=== PATIENT | male | born 1960 | race Caucasian/White ===

== ENCOUNTER 2024-11-16 12:06 | Outpatient (OUT) | payer OTHER, SELFPAY ==
--- OUTSIDE RECORDS SUMMARY | 2024-11-09 16:30 | XMS_ITS | Encounter Summary ---
Author Organization [facility] Address [address] [place] [address] Phone Care Team Providers Care Fire Range Technician Name Role Phone Judy Larry MD Primary Care Provider [phone]- [phone] Reason for Visit * Imaging (Routine) - Pending Review Specialty Diagnoses / Procedures Referred By Contac t Referred To Contact Radiology Diagnoses Family history of ischemic heart disease and other diseases of the circulatory system Procedures CT cardiac scoring wo IV contrast Judy Larry MD [address] [place] [address] [address] [place] [address] Phone: tel: fax: Referral ID Status Reason Start Date Expiration Date Visits Requested Visits Authorized [id number] Pending Review Perform Procedure 08/30/2024 08/30/2025 1 1 Encounter Details Date Type Department Care Team (Latest Contact Info) Description 11/09/2024 4:30 PM EDT Ancillary Procedure [facility] Medical [facility] [address] [phone] Family history of ischemic heart disease and other diseases of the circulatory system Social History Tobacco Use Types Packs/Day Years Used Date Smoking Tobacco: Never Assessed Sex and Gender Information Value Date Recorded Sex Assigned at Not on file Legal Sex Male 10:58 AM EDT Gender Identity Not on file Sexual Orientation Not on file documented as of this encounter Plan of Treatment Not on file documented as of this encounter Procedures Procedure Name Priority Date/Time Associated Diagnosis Comments CT CARDIAC SCORING WO IV CONTRAST Routine 11/09/2024 2:04 PM EDT Family history of ischemic heart disease and other diseases of the circulatory system documented in this encounter Results * CT cardiac scoring wo IV contrast (11/09/2024 2:04 PM EDT) Anatomical Region Laterality Modality Thoracic, Chest Computed Tomogra phy 11/11/2024 10:2 2 AM EDT 11/11/2024 10:22 AM EDT Impressions 11/11/2024 10:21 AM EDT 1. Coronary artery calcium score of 301*. *Coronary artery calcium scoring may be helpful in predicting the risk for future coronary heart disease events. According to the [employer] Clinical Expert Consensus Task Force, such testing provides important prognostic information in patients with more than one coronary heart disease risk factor. The coronary artery calcium score correlates with the annual risk of a non-fatal myocardial infarction or coronary heart disease . Coronary artery score Annual Risk 0-99 0.4% 100-399 1.3% >400 2.4% These three breakpoints correspond to lower, intermediate and high risk states for future coronary events. Such information should be used, along with appropriate clinical judgment, to make decisions regarding the intensity of risk factor management strategies to treat blood lipids and to modify other non-lipid coronary risk factors. Reference: [place] P et al. Circulation. 2007; 115:402-426 2. The chiropractic assistant images demonstrate an apparent dense nodule in the left lung base which may represent summation of shadows. However recommend dedicated follow-up chest x-ray. MACRO: Critical Finding: See findings. Notification was initiated on 11/11/2024 at 10:21 am by Omer Ahumada. (-YCF-) Instructions: See Findings. Signed by: Omer Ahumada 11/11/2024 10:21 AM Dictation workstation: [id number] Narrative 11/11/2024 10:21 AM EDT Interpreted By: Omer Ahumada, STUDY: CT CARDIAC SCORING WO IV CONTRAST; 11/09/2024 2:04 pm INDICATION: Signs/Symptoms:CARDIO SCREENING. ,Z82.49 Family history of ischemic heart disease and other diseases of the circulatory system COMPARISON: None. ACCESSION NUMBER(S): [id number] ORDERING CLINICIAN: JUDY LARRY TECHNIQUE: Using prospective ECG gating, CT scan of the coronary arteries was performed without intravenous contrast. Coronary calcium scoring was performed according to the method of Agatston. FINDINGS: The score and distribution of calcium in the coronary arteries is as follows: LM 0 LAD 167 LCx 78 RCA 56 Total 301 The visualized mid/lower ascending thoracic aorta measures 2.9 cm in diameter. The heart is normal in size. No pericardial effusion is present. Subcentimeter lymph nodes are noted which are nonspecific and may be reactive. The visualized segments of the lungs are normally expanded. The chiropractic assistant images demonstrate an apparent dense nodule in the left lung base which may represent summation of shadows. However recommend dedicated follow-up chest x-ray. The visualized subdiaphragmatic structures appear intact. Procedure Note Omer Ahumada MD - 11/11/2024 Interpreted By: Omer Ahumada, STUDY: CT CARDIAC SCORING WO IV CONTRAST; 11/09/2024 2:04 pm INDICATION: Signs/Symptoms:CARDIO SCREENING. ,Z82.49 Family history of ischemic heart disease and other diseases of the circulatory system COMPARISON: None. ACCESSION NUMBER(S): [id number] ORDERING CLINICIAN: JUDY LARRY TECHNIQUE: Using prospective ECG gating, CT scan of the coronary arteries was performed without intravenous contrast. Coronary calcium scoring was performed according to the method of [place]. FINDINGS: The score and distribution of calcium in the coronary arteries is as follows: LM 0 LAD 167 LCx 78 RCA 56 Total 301 The visualized mid/lower ascending thoracic aorta measures 2.9 cm in diameter. The heart is normal in size. No pericardial effusion is present. Subcentimeter lymph nodes are noted which are nonspecific and may be reactive. The visualized segments of the lungs are normally expanded. The chiropractic assistant images demonstrate an apparent dense nodule in the left lung base which may represent summation of shadows. However recommend dedicated follow-up chest x-ray. The visualized subdiaphragmatic structures appear intact. IMPRESSION: 1. Coronary artery calcium score of 301*. *Coronary artery calcium scoring may be helpful in predicting the risk for future coronary heart disease events. According to the [employer] Clinical Expert Consensus Task Force, such testing provides important prognostic information in patients with more than one coronary heart disease risk factor. The coronary artery calcium score correlates with the annual risk of a non-fatal myocardial infarction or coronary heart disease . Coronary artery score Annual Risk 0-99 0.4% 100-399 1.3% >400 2.4% These three breakpoints correspond to lower, intermediate and high risk states for future coronary events. Such information should be used, along with appropriate clinical judgment, to make decisions regarding the intensity of risk factor management strategies to treat blood lipids and to modify other non-lipid coronary risk factors. Reference: [place] P et al. Circulation. 2007; 115:402-426 2. The chiropractic assistant images demonstrate an apparent dense nodule in the left lung base which may represent summation of shadows. However recommend dedicated follow-up chest x-ray. MACRO: Critical Finding: See findings. Notification was initiated on 11/11/2024 at 10:21 am by Omer Ahumada. (-YCF-) Instructions: See Findings. Signed by: Omer Ahumada 11/11/2024 10:21 AM Dictation workstation: [id number] Judy Larry MD IMG CT PROCEDURES Final Re sult documented in this encounter Visit Diagnoses Diagnosis Family history of ischemic heart disease and other diseases of the circulatory system documented in this encounter Care Teams Fire Range Technician Relationship Specialty Start Date End Date Judy Larry MD [address] [place] [address] PCP - General Family Medicine 11/09/24 documented as of this encounter
--- OUTSIDE RECORDS SUMMARY | 2024-11-16 12:13 | XMS_ITS | Clinical Summary ---
Author Organization [employer] Address [id number] [address] [place] [address] Care Team Providers Care Linseed Cake Trimmer Name Role Phone Christi Magana Primary Care Provider Unavaila ble Allergies No known active allergies Medications sertraline (ZOLOFT) 100 mg tablet Take 100 mg by mouth daily. Active esomeprazole (NexIUM) 20 mg capsule Take 20 mg by mouth every morning before breakfast. Active aspirin 81 mg Take 81 mg by mouth daily. Active atorvastatin (LIPITOR) 20 mg tablet Take 20 mg by mouth daily. Active cujiltcg-rmhy-K A-calcium &mins (THERAGRAN-M) 9 mg iron-400 mcg tablet Take 1 tablet by mouth daily. Active Active Problems Problem Noted Date Diagnosed Date Angina pectoris 09/29/2020 Gastroesophageal reflux disease 09/29/2020 Dyslipidemia 09/29/2020 Family History Medical History Relation Name Comments Diabetes Father Early Father Heart disease Father Diverticulitis Mother Relation Name Status Comments Daughter Alive Father Mother Alive Sister 1 Alive Sister 2 Alive Son 1 Alive Son 2 Alive Social History Tobacco Use Types Packs/Day Years Used Date Smoking Tobacco: Never Smokeless Tobacco: Never Tobacco Cessation:Counseling Given: No Alcohol Use Standard Drinks/Week Comments Yes 0 (1 standard drink = 0.6 oz pur e alcohol) Childcare Answer Date Recorded Childcare Unknown 09/03/2018 Employment Answer Date Recorded Employment Unknown 09/03/2018 Purpose - Life Answer Date Recorded Purpose and direction in life Unknown Sex and Gender Information Value Date Recorded Sex Assigned at Not on file Legal Sex Male 11:36 AM EDT Gender Identity Not on file Sexual Orientation Not on file Last Filed Vital Signs Vital Sign Reading Time Taken Comments Blood Pressure 136/96 01/26/2021 8:33 AM EDT Pulse 82 01/26/2021 8:33 AM EDT Temperature 36.4 C (97.6 F) 01/26/2021 6:43 AM EDT Respiratory Rate 24 01/26/2021 8:13 AM EDT Oxygen Saturation 97% 01/26/2021 8:33 AM EDT Inhaled Oxygen Concentration - - Weight 99.8 kg (220 lb) 01/26/2021 6:43 AM EDT Height 175.3 cm (5' 9 ) 01/26/2021 6:43 AM EDT Body Mass Index 32.49 01/26/2021 6:43 AM EDT Plan of Treatment Health Maintenance Due Date Last Done Comments Depression Screening 1974 Tobacco Screening 1974 Adult BMI Screening 1980 DTaP,Tdap and Td Vaccines (1 - Tdap) 1981 Zoster (Shingles) Vaccine (1 of 2) 2012 COVID-19 Vaccine (3 - 2023-2 5 season) 2023 06/28/2020, 06/07/2020 Influenza Vaccine 11/23/2024 12/11/2019, , 02/09/2018, Additional history exists Colonoscopy 01/26/2026 01/26/2021, 06/2020, 07/05/2014 Medical Devices Not on file Procedures Procedure Name Priority Date/Time Associated Diagnosis Comments COLONOSCOPY 01/26/2021 7:46 AM EDT from Last 3 Months or Most Recently Relevant to Health Maintenance Results * Colonoscopy (01/26/2021 7:46 AM EDT) 01/26/2021 7:46 AM EDT Narrative PM CARDIOVASCULAR - 01/26/2021 8:10 AM EDT [facility] Patient Name: Steve Harley Procedure Date No Time: 01/26/2021 CSN : [id number] Date of : 1960 Admit Type: Outpatient Age: 60 Room: [place] [address] Gender: Male Note Status: Finalized Attending MD: Enrrique Dixon DO Procedure: Colonoscopy Indications: Screening for colorectal malignant neoplasm, Surveillance: Personal history of adenomatous polyps on last colonoscopy > 5 years ago Providers: Enrrique Dixon DO Referring MD: Enrrique Dixon DO Medicines: Propofol per Anesthesia Complications: No immediate complications. Procedure: After I obtained informed consent, the scope was passed under direct vision. Throughout the procedure, the patient's blood pressure, pulse, and oxygen saturations were monitored continuously. The [place] [id number] #[id number] ADULT COLONOSCOPE was introduced through the anus and advanced to the cecum, identified by appendiceal orifice and ileocecal valve. The colonoscopy was performed without difficulty. The patient tolerated the procedure well. The quality of the bowel preparation was good. Findings: The perianal and digital rectal examinations were normal. Multiple small and large-mouthed diverticula were found in the sigmoid colon and descending colon. A 5 mm polyp was found in the hepatic flexure. The polyp was sessile. The polyp was removed with a hot snare. Resection and retrieval were complete. The exam was otherwise without abnormality on direct and retroflexion views. Estimated Blood Loss: Estimated blood loss: none. Impression: - Diverticulosis in the sigmoid colon and in the descending colon. - One 5 mm polyp at the hepatic flexure, removed with a hot snare. Resected and retrieved. - The examination was otherwise normal on direct and retroflexion views. Recommendation: - Discharge patient to home. - Patient has a contact number available for emergencies. The signs and symptoms of potential delayed complications were discussed with the patient. Return to normal activities tomorrow. Written discharge instructions were provided to the patient. - High fiber diet for the rest of the patient's life. - Repeat colonoscopy in 5 years for surveillance based on pathology results. - Return to my office PRN. Procedure Code(s): --- Professional --- 68284, Colonoscopy, flexible; with removal of tumor(s), polyp(s), or other lesion(s) by snare technique Diagnosis Code(s): --- Professional --- Z12.11, Encounter for screening for malignant neoplasm of colon Z86.010, Personal history of colonic polyps K63.5, Polyp of colon K57.30, Diverticulosis of large intestine without perforation or abscess without bleeding CPT copyright 2020 [employer]. All rights reserved. The codes documented in this report are preliminary and upon vp sales review may be revised to meet current compliance requirements. DO Enrrique Gibbons DO 01/26/2021 8:10:23 AM Number of Addenda: 0 Note Initiated On: 01/26/2021 7:46 AM Procedure Note Enrrique Dixon DO - 01/26/2021 [facility] Patient Name: Steve Harley Procedure Date No Time: 01/26/2021 CSN : [id number] Date of : 1960 Admit Type: Outpatient Age: 60 Room: [place] [address] Gender: Male Note Status: Finalized Attending MD: Enrrique Dixon DO Procedure: Colonoscopy Indications: Screening for colorectal malignant neoplasm, Surveillance: Personal history of adenomatouspolyps on last colonoscopy > 5 years ago Providers: Enrrique Dixon DO Referring MD: Enrrique Dixon DO Medicines: Propofol per Anesthesia Complications: No immediate complications. Procedure: After I obtained informed consent, the scope was passed under direct vision. Throughout theprocedure, the patient's blood pressure, pulse, and oxygen saturations were monitored continuously. The[facility] developers[facility] [id number] #[id number] ADULT COLONOSCOPE was introduced through the anus and advanced to the cecum,identified by appendiceal orifice and ileocecal valve. The colonoscopy was performed without difficulty. The patient tolerated the procedure well. The qualityof the bowel preparation was good. Findings: The perianal and digital rectal examinations were normal. Multiple small and large-mouthed diverticula were found in thesigmoid colon and descending colon. A 5 mm polyp was found in the hepatic flexure. The polyp was sessile. The polyp was removed with a hot snare. Resection and retrieval were complete. The exam was otherwise without abnormality on direct and retroflexion views. Estimated Blood Loss: Estimated blood loss: none. Impression: - Diverticulosis in the sigmoid colon and in the descending colon. - One 5 mm polyp at the hepatic flexure, removedwith a hot snare. Resected and retrieved. - The examination was otherwise normal on directand retroflexion views. Recommendation: - Discharge patient to home. - Patient has a contact number available for emergencies. The signs and symptoms of potential delayed complications were discussed with thepatient. Return to normal activities tomorrow. Written discharge instructions were provided to thepatient. - High fiber diet for the rest of the patient'slife. - Repeat colonoscopy in 5 years for surveillancebased on pathology results. - Return to my office PRN. Procedure Code(s): --- Professional --- 71729, Colonoscopy, flexible; with removal of tumor(s), polyp(s), or other lesion(s) by snare technique Diagnosis Code(s): --- Professional --- Z12.11, Encounter for screening for malignant neoplasm of colon Z86.010, Personal history of colonic polyps K63.5, Polyp of colon K57.30, Diverticulosis of large intestine without perforation orabscess without bleeding CPT copyright 2020 [employer]. All rights reserved. The codes documented in this report are preliminary and upon vp sales reviewmay be revised to meet current compliance requirements. DO Enrrique Gibbons DO 01/26/2021 8:10:23 AM Number of Addenda: 0 Note Initiated On: 01/26/2021 7:46 AM Enrrique Dixon DO GI PROCEDURE ORDERABLES Fin al Result PM CARDIOVASCULAR from Last 3 Months or Most Recently Relevant to Health Maintenance Insurance [employer] Care Teams Linseed Cake Trimmer Relationship Specialty Start Date End Date Christi Magana DO PCP - General Family Medicine 09/27/20
--- OUTSIDE RECORDS SUMMARY | 2024-11-16 12:13 | XMS_ITS | Encounter Summary ---
Author Organization [facility] Address [address] [place] [phone] Phone Care Team Providers Care Litigation Docket Manager Name Role Phone Generic Provider, No Assigned Pcp MD Primary Car e Provider Unavailable Judy Larry MD Primary Care Provider [phone]- [phone] Reason for Referral * Imaging (Routine) - Pending Review Specialty Diagnoses / Procedures Referred By Contac t Referred To Contact Radiology Diagnoses Family history of ischemic heart disease and other diseases of the circulatory system Procedures CT cardiac scoring wo IV contrast Judy Larry MD [address] [facility] [address] [place] [address] Phone: tel: fax: Referral ID Status Reason Start Date Expiration Date Visits Requested Visits Authorized [id number] Pending Review Perform Procedure 08/30/2024 08/30/2025 1 1 Encounter Details Date Type Department Care Team (Late st Contact Info) Description 08/30/2024 Transcribe Orders [facility] [address] [place] [address] Judy Larry MD [address] [facility] [address] [place] [address] Family history of ischemic heart disease and other diseases of the circulatory system (Primary Dx) Social History Tobacco Use Types Packs/Day Years Used Date Smoking Tobacco: Never Assessed Sex and Gender Information Value Date Recorded Sex Assigned at Not on file Legal Sex Male 10:58 AM EDT Gender Identity Not on file Sexual Orientation Not on file documented as of this encounter Plan of Treatment Not on file documented as of this encounter Results * CT cardiac scoring [...] coronary heart disease events. According to the [employer] Clinical Expert Consensus [...] modify other non-lipid coronary risk factors. Reference: [place] P et al. Circulation. 2007; 115:402-426 2. The brake adjuster images demonstrate an apparent dense nodule in the left lung base which may represent summation of shadows. However recommend dedicated follow-up chest x-ray. MACRO: Critical Finding: See findings. Notification was initiated on 11/11/2024 at 10:21 am by Omer Ahumada. (-YCF-) Instructions: See Findings. Signed by: Omer Ahumada 11/11/2024 10:21 AM Dictation workstation: [id number] Narrative 11/11/2024 10:21 AM EDT Interpreted By: Omer Ahumada, STUDY: CT CARDIAC SCORING WO IV CONTRAST; 11/09/2024 2:04 pm INDICATION: Signs/Symptoms:CARDIO SCREENING. ,Z82.49 Family history of ischemic heart disease and other diseases of the circulatory system COMPARISON: None. ACCESSION NUMBER(S): [id number] ORDERING CLINICIAN: JUDY LARRY TECHNIQUE: Using prospective [...] of the lungs are normally expanded. The brake adjuster images demonstrate an apparent dense nodule in [...] the circulatory system COMPARISON: None. ACCESSION NUMBER(S): [id number] ORDERING CLINICIAN: JUDY LARRY TECHNIQUE: Using prospective [...] of the lungs are normally expanded. The brake adjuster images demonstrate an apparent dense nodule in the left lung base which may represent summation of shadows. However recommend dedicated follow-up chest x-ray. The visualized subdiaphragmatic structures appear intact. IMPRESSION: 1. Coronary artery calcium score of 301*. *Coronary artery calcium scoring may be helpful in predicting the risk for future coronary heart disease events. According to the [employer] Clinical Expert Consensus [...] modify other non-lipid coronary risk factors. Reference: [place] P et al. Circulation. 2007; 115:402-426 2. The brake adjuster images demonstrate an apparent dense nodule in the left lung base which may represent summation of shadows. However recommend dedicated follow-up chest x-ray. MACRO: Critical Finding: See findings. Notification was initiated on 11/11/2024 at 10:21 am by Omer Ahumada. (-YCF-) Instructions: See Findings. Signed by: Omer Ahumada 11/11/2024 10:21 AM Dictation workstation: [id number] Judy Larry MD IMG CT PROCEDURES Final Re sult documented in this encounter Visit Diagnoses Diagnosis Family history of ischemic heart disease and other diseases of the circulatory system- Primary Family history of ischemic heart disease and other diseases of the circulatory system documented in this encounter Care Teams Litigation Docket Manager Relationship Specialty Start Date End Date Generic Provider, No [place] [address] PCP - General Craft Coordinator 10/27/24 11/08/24 Judy Larry MD [address] [place] [address] [address] [place] [address] PCP - General Family Medicine 11/09/24 documented as of this encounter
--- OUTSIDE RECORDS SUMMARY | 2024-11-16 12:13 | XMS_ITS | Clinical Summary ---
Author Organization [facility] Address [address] [place] [address] Phone Care Team Providers Care Office Helper Name Role Phone Judy Larry MD Primary Care Provider [phone]- [phone] Encounters Date Type Department Care Team Description 11/09/2024 4:30 PM EDT Ancillary Procedure [facility] [address] [id number] Family history of ischemic heart disease and other diseases of the circulatory system 11/09/2024 Travel 08/30/2024 Transcribe Orders [facility] [address] [place] [address] Judy Larry MD Family history of ischemic heart disease and other diseases of the circulatory system (Primary Dx) from Last 3 Months Social History Tobacco Use Types Packs/Day Years Used Date Smoking Tobacco: Never Assessed Sex and Gender Information Value Date Recorded Sex Assigned at Not on file Legal Sex Male 10:58 AM EDT Gender Identity Not on file Sexual Orientation Not on file Plan of Treatment Health Maintenance Due Date Last Done Comments CT Colonography 1962 FIT-DNA (Cologuard) 1960 FIT 1960 HIV Screening 1960 Lipid Panel 1960 Sigmoidoscopy 1962 MMR Vaccines (1 of 1 - Standard series) 05/27/1963 Hepatitis C Screening 1980 Hepatitis A Vaccines (1 of 2 - Risk 2-dose series) 1981 DTaP/Tdap/Td Vaccines (1 - Tdap) 1984 PSA Prostate Cancer Screening 2012 Pneumococcal Vaccine (1 of 1 - PCV) 2012 Zoster Vaccines (1 of 2) 2012 Hepatitis B Vaccines (1 of 3 - Risk 3-dose series) 2022 RSV High Risk: (Elderly (60+) or Population) (1 - Risk 60-74 years 1-dose series) 2022 COVID-19 Vaccine (1 - season) 2023 Influenza Vaccine (#1) 2024 0, 02/27/2019, 02/09/2018, Additional history exists Yearly Adult Physical 02/04/2025 02/04/2024, 023 Colonoscopy 01/26/2031 01/26/2021, 06/2020, 01/26/2021 Colorectal Cancer Screening 01/26/2031 HIB Vaccines Aged Out No longer eligi ble based on patient's age to complete this topic HPV Vaccines Aged Out No longer eligi ble based on patient's age to complete this topic IPV Vaccines Aged Out No longer eligi ble based on patient's age to complete this topic Meningococcal Vaccine Aged Out No linda devaughn eligible based on patient's age to complete this topic Rotavirus Vaccines Aged Out No longer eligible based on patient's age to complete this topic Procedures Procedure Name Priority Date/Time Associated Diagnosis Comments CT CARDIAC SCORING WO IV CONTRAST Routine 11/09/2024 2:04 PM EDT Family history of ischemic heart disease and other diseases of the circulatory system from Last 3 Months Results * CT cardiac scoring wo IV contrast (11/09/2024 2:04 PM EDT) Anatomical Region Laterality Modality Thoracic, Chest Computed Tomogra phy 11/11/2024 10:2 2 AM EDT 11/11/2024 10:22 AM EDT Impressions 11/11/2024 10:21 AM EDT 1. Coronary artery calcium score of 301*. *Coronary artery calcium scoring may be helpful in predicting the risk for future coronary heart disease events. According to the [employer] Clinical Expert Consensus [...] modify other non-lipid coronary risk factors. Reference: [place] P et al. Circulation. 2007; 115:402-426 2. The electromechanical inspector images demonstrate an apparent dense nodule in the left lung base which may represent summation of shadows. However recommend dedicated follow-up chest x-ray. MACRO: Critical Finding: See findings. Notification was initiated on 11/11/2024 at 10:21 am by Omer Ahumada. (-YCF-) Instructions: See Findings. Signed by: Omer Ahumada 11/11/2024 10:21 AM Dictation workstation: [id number] Narrative 11/11/2024 10:21 AM EDT Interpreted By: Omer Ahumada, STUDY: CT CARDIAC SCORING WO IV CONTRAST; 11/09/2024 2:04 pm INDICATION: Signs/Symptoms:CARDIO SCREENING. ,Z82.49 Family history of ischemic heart disease and other diseases of the circulatory system COMPARISON: None. ACCESSION NUMBER(S): [id number] ORDERING CLINICIAN: JUDY LARRY TECHNIQUE: Using prospective [...] of the lungs are normally expanded. The electromechanical inspector images demonstrate an apparent dense nodule in [...] the circulatory system COMPARISON: None. ACCESSION NUMBER(S): [id number] ORDERING CLINICIAN: JUDY LARRY TECHNIQUE: Using prospective [...] of the lungs are normally expanded. The electromechanical inspector images demonstrate an apparent dense nodule in the left lung base which may represent summation of shadows. However recommend dedicated follow-up chest x-ray. The visualized subdiaphragmatic structures appear intact. IMPRESSION: 1. Coronary artery calcium score of 301*. *Coronary artery calcium scoring may be helpful in predicting the risk for future coronary heart disease events. According to the [place] [employer] Clinical Expert Consensus [...] modify other non-lipid coronary risk factors. Reference: [place] P et al. Circulation. 2007; 115:402-426 2. The electromechanical inspector images demonstrate an apparent dense nodule in the left lung base which may represent summation of shadows. However recommend dedicated follow-up chest x-ray. MACRO: Critical Finding: See findings. Notification was initiated on 11/11/2024 at 10:21 am by Omer Ahumada. (-YCF-) Instructions: See Findings. Signed by: Omer Ahumada 11/11/2024 10:21 AM Dictation workstation: [id number] Judy Larry MD IMG CT PROCEDURES Final Re sult from Last 3 Months Insurance [facility] Member Subscriber Plan / Payer (Ef fective 2015-Present) Name:Steve Harley Relation to Subscriber:Self Name:Steve Harley Payer ID:[id number] (NAIC) Type:Not on file Address: [place] [id number] Care Teams Office Helper Relationship Specialty Start Date End Date Judy Larry MD [address] [place] [address] PCP - General Family Medicine 11/09/24
--- OUTSIDE RECORDS SUMMARY | 2024-11-16 12:13 | XMS_ITS | Encounter Summary ---
Author Organization [facility] Address [address] [place] [address] Phone Care Team Providers Care Signal Engineer Name Role Phone Judy Gates MD Primary Care Provider [phone]- [phone] Encounter Details Date Type Department Care Team (Latest Contact Info) Description 11/09/2024 Travel Social History Tobacco Use Types Packs/Day Years Used Date Smoking Tobacco: Never Assessed Sex and Gender Information Value Date Recorded Sex Assigned at Not on file Legal Sex Male 10:58 AM EDT Gender Identity Not on file Sexual Orientation Not on file documented as of this encounter Plan of Treatment Not on file documented as of this encounter Visit Diagnoses Not on filedocumented in this encounter Care Teams Signal Engineer Relationship Specialty Start Date End Date Judy Gates MD [address] [facility] [address] [place] [address] PCP - General Family Medicine 11/09/24 documented as of this encounter
--- NOTE | 2024-11-16 12:17 | XR_ITS ---
[place] [id number] Patient Name: MEL KOCH MRN: [id number] date: 1960 Sex: M Assigned Patient Location: [facility] Current Patient Location: [facility] Accession/Order Number: [id number] Exam Date: 11/16/2024 12:25 Report Date: 11/16/2024 12:47 At the request of: CJ LARRY Procedure: XR chest 2V Plain film chest 2 view HISTORY: Left lung nodule COMPARISON: None FINDINGS: SUPPORT DEVICES: None POSTSURGICAL CHANGES: None HEART: Within normal limits PULMONARY RAMONA: Within normal limits MEDIASTINUM: Unremarkable LUNGS AND PLEURA: No acute lung process, pleural effusion or pneumothorax identified. 1.3 cm left lung base nodule. BONY STRUCTURES: Intact ADDITIONAL FINDINGS None XR/XR chest 2V IMPRESSION: 1.3 cm left lung base nodule. Impression dictated by: Hi Wild M.D. 11/16/2024 12:47 PM Dictation Location: [place] Electronically authenticated by: [id number] Y Date: 11/16/2024 12:47
== END 2024-11-16 12:07 | disposition home or self-care (01) ==
LOC: RAD 12:12
PROVIDERS: PCP Family Medicine; Visit Provider Family Medicine
DX: R91.1 Solitary pulmonary nodule (principal)
CPT/HCPCS: 71046

== ENCOUNTER 2025-02-17 09:54 | Outpatient (OUT) | payer OTHER, SELFPAY ==
--- OUTSIDE RECORDS SUMMARY | 2025-02-17 09:57 | XMS_ITS | Clinical Summary ---
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 Name Role Phone Judy Gates MD Primary Care Provider [phone] Allergies Active AllergyReactionsCriticalityNoted DateCommentsPoison Ayesha Axrxvxa0301/02/2024 Other Reaction(s): Blister Medications MedicationSigDispense QuantityRefillsLast FilledStart DateEnd DateStatus aspirin (ASPIR) 81 MG EC tablet 1 (one) time each day at the same time.Active esomeprazole (NexIUM) 40 MG packet 1 (one) time each day at the same time.Active atorvastatin (Lipitor) 40 MG tablet Indications:Mixed hyperlipidemiaTake 1 tablet (40 mg) by mouth Daily 100 tablet 412/5Active sertraline (Zoloft) 100 MG tablet Indications:Recurrent major depression in partial remissionTake 1 tablet (100 mg) by mouth Daily 100 tablet 5Active azithromycin (Zithromax) 250 MG tablet Indications:Acute bronchitis, unspecified organism2 tabs x1 day, then 1 tab xs 4 days 6 tablet 5Active vardenafil (Levitra) 20 MG tablet Indications:Erectile dysfunction, unspecified erectile dysfunction typeTake 1 tablet (20 mg) by mouth Daily as needed for erectile dysfunction 10 tablet Discontinued(Other) diclofenac (Voltaren) 75 MG EC tablet Take 75 mg by mouth in the morning and 75 mg before bedtime.02/09/2025 Discontinued(Other) Active Problems ProblemNoted DateDiagnosed LisgToucugofyu79/12/2024H/O dnqnmdaocyg81/12/2024 Internal derangement of right knee02/04/2024rimary osteoarthritis of right knee 02/04/2024Medial meniscus tear02/04/2024Status post arthroscopy of right knee 02/04/2024History of uxwkfijbswodoun76/12/6000Ftqfrin05/12/2024Major depressive disorder, single episode, yxderzsc89/12/2024 Assessment & Plan (02/04/2024 4:18 PM EST): This is a chronic medical condition that is stable since last assessment. No changes in treatment are suggested at this time. Continue Current meds. In Full remission Heart pzaugyukqieb52/24/2023 Assessment & Plan (01/15/2023 4:46 PM EDT): Reduce caffeine Avoid OTC decongestants Consider Event or Holter Velazquez's neuroma of left foot09/24/2022bsence of njvvrwqalki42/26/2023dult BMI 34.0-34.9 kg/sq m009/17/2022egeneration of cervical intervertebral disc 09/17/2022iverticulosis of colon09/17/2022Family history of diabetes mellitus 09/17/2022Family history of ischemic heart pgxhbhg6909/17/2022astroesophageal reflux disease without qhnbjkfydms90/26/2023eneralized anxiety disorder 09/17/2022ilbert's wyuvwchs95/26/2023Hx of adenomatous polyp of colon09/17/2022 Erectile xhgzeokaood71/26/2023Long term current use of ijgbogk7509/17/2022Nummular toxxmn7609/17/20228956Twsbn80/26/2023Tubular adenoma of colon09/17/2022Varicose veins of bilateral lower extremities with other tykdmjkudrgnq95/26/2023Recurrent major depressive disorder, in partial hilhwmvzu92/26/2023Mixed hyperlipidemia 08/24/2022 Assessment & Plan (02/04/2024 4:18 PM EST): This is a chronic medical condition that is stable since last assessment. No changes in treatment are suggested at this time. Continue Current meds. Assessment & Plan (01/15/2023 4:36 PM EDT): Continue medicines D/W patient med compliance and also reviewed labs Pxteajmuuprxzxn35/02/2023Recurrent major depression in partial remission 08/24/2022 Assessment & Plan (01/15/2023 4:36 PM EDT): This is a chronic medical condition that is stable since last assessment. No changes in treatment are suggested at this time. Angina /08/5504Zyiucqmqnxnc40/08/2021Varicose veins of both lower oipuvecicmv15/14/2019History of excision of intestinal hqigtyabf69/22/2017 Resolved Problems ProblemNoted DateDiagnosed DateResolved DateEncounter for well adult exam without abnormal eyzwszhw62 Assessment & Plan (02/04/2024 4:13 PM EST): Modest Alcohol consumption No Tobacco Seat Belt use Exercise Regularly No Text Drive Social Accountability Assessment & Plan (01/15/2023 4:34 PM EDT): Modest Alcohol consumption No Tobacco Seat Belt use Exercise Regularly No Text Drive Social Accountability Encounters DateTypeDepartmentCare RchoHljespipsxg64/24/2025Results Follow-Up [facility] [place] [facility] [address] [place] [id number] Judy Gates MD CBC and differential, Comprehensive metabolic panel, Lipid panel, PSA02/10/2025 Orders Only [facility] [address] [place] [address] Jordyn Augustin PA Erectile dysfunction, unspecified erectile dysfunction type (Primary Dx) 02/03/2025Telephone [facility] [address] [place] [address] Judy Gates MD 12/10/2024bstract [facility] [address] [place] [address] Judy Gates MD 11/17/2024Results Follow-Up [facility] [address] [place] [address] Judy Gates MD XR CHEST 2Vfrom Last 3 Months Immunizations ImmunizationAdministration DatesNext DueInfluenza, injectable, quadrivalent 12/11/2019,02/27/2019,02/09/2018Influenza, seasonal, injectable, preservative free01/01/2017Influenza, seasonal, intradermal, preservative free01/01/2017 Family History Medical HistoryRelationNameCommentsDiabetesCousinDiabetesFatherHeart attack FatherHeart diseaseFatherDiabetesFather's BrotherHeart diseaseFather's Brother HypertensionFather's BrotherLeukemiaMaternal GrandfatherDiverticulitisMother Heart diseasePaternal GrandfatherDiverticulitisSisterHyperlipidemiaSister MelanomaNeg HxRelationNameStatusCommentsCousinDaughter 1AliveDaughter 2Alive FatherDeceased (Age 55)Sudden -55Father's BrotherMaternal Grandfather (Age 40)Maternal GrandmotherDeceased (Age 99)MotherAliveback surgery, lumbar fusion knee replacementPaternal GrandfatherSister2 sistersSonAlive Social History Tobacco UseTypesPacks/DayYears UsedDateSmoking Tobacco: NeverSmokeless Tobacco: Never Tobacco Cessation:Counseling Given: Yes Alcohol UseStandard Drinks/WeekCommentsYes0 (1 standard drink = 0.6 oz pure alcohol)2-4 times/month. Caffeine 1-2 cups/dayPHQ-2AnswerDate RecordedPatient Health Questionnaire-2 Goyuv469Sex and Gender InformationValueDate RecordedSex Assigned at BirthNot on fileLegal PkkXfzg7006/06/2022 7:35 PM EDT Gender PxhwhvoaWflz25/15/2023 7:35 PM EDTSexual OrientationNot on file Last Filed Vital Signs Vital SignReadingTime TakenCommentsBlood Gudazwox221/7203 2:32 PM EDT Hccgm131306/03/2024 2:32 PM TFPChhnextgfok19.5 ??C (97.7 ??F)06/03/2024 2:32 PM EDTRespiratory Rate--Oxygen Upsomoolcv76%06/03/2024 2:32 PM EDTInhaled Oxygen Concentration--Kifvty211 kg (224 lb)06/03/2024 2:32 PM LJQNxmuhy836.3 cm (5' 9 ) 06/03/2024 2:32 PM EDTBody Mass Index33.0806/03/2024 2:32 PM EDT Plan of Treatment DateTypeDepartmentCare Team (Latest Contact Info)Ufaiubtqpzo96/15/2025 2:00 PM ESTOffice Visit [facility] [address] [facility] [address] [place] [address] Judy Gates MD [address] [facility] [address] [place] [address] 04/29/2025 9:35 AM ESTOffice Visit [facility] [address] [place] [address] Yvette Alfaro MD [address] [place] [address] Health MaintenanceDue DateLast DoneCommentsCT Ycabjikupkvo48/04/1963FIT-DNA 1962FIT1962FOBT1962 4192Bgkvoxihgboyj66/04/1963Pneumococcal Vaccine: Pediatrics (0 to 5 Years) and At-Risk Patients (6 to 64 Years) (1 of 2 - PCV)1981COVID-19 Vaccine ( season), 06/28/2020, 06/07/2020Influenza Vaccine (#1), 02/27/2019, 02/09/2018, Additional history idbygoCydprpgzjiy46, 07/05/2014 Colorectal Cancer Rhyauvcnt99/04/2031 Procedures Procedure NamePriorityDate/TimeAssociated DiagnosisCommentsTESTOSTERONE FREE AND IUDCJZqpewri18/ 10:25 AM EST Erectile dysfunction, unspecified erectile dysfunction type PSA, SIPWWWiauebh28/19/2025 10:25 AM EST Nocturia Encounter for well adult exam without abnormal findings LIPID ZSIUXZqodsyi28/19/2025 10:25 AM EST Mixed hyperlipidemia Encounter for well adult exam without abnormal findings COMPREHENSIVE METABOLIC KHKIVTtckflt07/19/2025 10:25 AM EST Nocturia Mixed hyperlipidemia Family history of diabetes mellitus Benign essential hypertension Abnormal glucose tolerance test Encounter for well adult exam without abnormal findings CBC (INCLUDES DIFF/PLT)Bcoccmt7002/10/2025 10:25 AM EST Nocturia Mixed hyperlipidemia Family history of diabetes mellitus Benign essential hypertension Abnormal glucose tolerance test Encounter for well adult exam without abnormal findings ELQDUKGTBSTJxosaov46/04/2021 12:00 PM EDT from Last 3 Months or Most Recently Relevant to Health Maintenance Results * CBC and differential (02/10/2025 10:25 AM EST)ComponentValueRef RangeTest MethodAnalysis TimePerformed AtPathologist SignatureWHITE BLOOD CELL COUNT7.6 3.8 - 10.8 Thousand/uLQUESTRED BLOOD CELL COUNT5.204.20 - 5.80 Million/uLQUEST VGBRTZRLUE43.613.2 - 17.1 g/xIRCMDEOHTEOTARHB73.438.5 - 50.0 %YWNCFVUN97.280.0 - 100.0 lWHUWCSFMK03.927.0 - 33.0 jdIQVVKHEJW76.032.0 - 36.0 g/dLQUESTComment: For adults, a slight decrease in the calculated MCHC value (in the range of 30 to 32 g/dL) is most likely not clinically significant; however, it should be interpreted with caution in correlation with other red cell parameters and the patient's clinical condition. RDW11.911.0 - 15.0 %QUESTPLATELET RNJQV833311 - 400 Thousand/uLQUESTMPV9.97.5 - 12.5 fLQUESTABSOLUTE NEUTROPHILS4,5521,500 - 7,800 cells/uLQUESTABSOLUTE LYMPHOCYTES2,466389 - 3,900 cells/uLQUESTABSOLUTE FZHDUDXDP389244 - 950 cells/uL QUESTABSOLUTE YLHPNDRREGH53644 - 500 cells/uLQUESTABSOLUTE KSAZKVJSY990 - 200 cells/pVKYETOGFYFPJHJXIA45.9%IAMYXSAIPUTCKASQ66.6%QUESTMONOCYTES8.5%QUEST EOSINOPHILS3.7%QUESTBASOPHILS1.3%QUESTSpecimen (Source)Anatomical Location / LateralityCollection Method / VolumeCollection TimeReceived TimeBloodVenous blood specimen / Pvhcdff3202/10/2025 10:25 AM EST02/10/2025 10:26 AM EST Narrative [facility] - 02/11/2025 7:16 AM EST FASTING:YES FASTING: YES Resulting Agency Comment Performing Organization Information ?Site ID: QPT ?Name: [facility] ?Address: [address] [place] [phone] ?Director: Desean Thomas MD Authorizing ProviderResult TypeResult StatusJudy Gates MDLAB BLOOD ORDERABLES Final ResultPerforming OrganizationAddressCity/State/ZIP CodePhone Number [facility] * Testosterone, free, total (02/10/2025 10:25 AM EST)ComponentValueRef RangeTest MethodAnalysis TimePerformed AtPathologist SignatureTESTOSTERONE, TOTAL, MS588 250 - 1,100 ng/dLQUESTComment: Men with clinically significant hypogonadal symptoms and testosterone values repeatedly in the range of the 200-300 ng/dL or less, may benefit from testosterone treatment after adequate risk and benefits counseling. ? For additional information, please refer to http://education.S[employer].Eventials/faq/ YxfveYpuxmtadamjhTNEABNKCX516 (This link is being provided for informational/ educational purposes only.) This test was developed and its analytical performance characteristics have been determined by [facility] [place], [place]. It has not been cleared or approved by the U.S. Food and Drug Administration. This assay has been validated pursuant to the CLIA regulations and is used for clinical purposes. ? TESTOSTERONE, FREE60.035.0 - 155.0 pg/mLQUESTComment: This test was developed and its analytical performance characteristics have been determined by [facility] [place], [place]. It has not been cleared or approved by the U.S. Food and Drug Administration. This assay has been validated pursuant to the CLIA regulations and is used for clinical purposes. Specimen (Source)Anatomical Location / LateralityCollection Method / Volume Collection TimeReceived TimeBloodVenous blood specimen / Kfeeggr1002/10/2025 10:25 AM EST02/10/2025 10:26 AM EST Narrative [facility] - 02/16/2025 8:02 PM EST FASTING:YES FASTING: YES Resulting Agency Comment Performing Organization Information ?Site ID: AMD ?Name: [facility] ?Address: [address] [place] [address] [place], [place] ?Director: Yonis France M.D.,PhD Authorizing ProviderResult TypeResult StatusJordyn Vega [facility] BLOOD ORDERABLESFinal ResultPerforming OrganizationAddressCity/State/ZIP CodePhone Number [facility] * PSA (02/10/2025 10:25 AM EST)ComponentValueRef RangeTest MethodAnalysis Time Performed AtPathologist SignaturePSA, TOTAL0.75< OR = 4.00 ng/mLQUESTComment: The total PSA value from this assay system is standardized against the WHO standard. The test result will be approximately 20% lower when compared to the equimolar-standardized total PSA ([place]il [place]). Comparison of serial PSA results should be interpreted with this fact in mind. This test was performed using the Siemens chemiluminescent method. Values obtained from different assay methods cannot be used interchangeably. PSA levels, regardless of value, should not be interpreted as absolute evidence of the presence or absence of disease. Specimen (Source)Anatomical Location / LateralityCollection Method / Volume Collection TimeReceived TimeBloodVenous blood specimen / Bpductb5202/10/2025 10:25 AM EST02/10/2025 10:26 AM EST Narrative [facility] - 02/11/2025 7:16 AM EST FASTING:YES FASTING: YES Resulting Agency Comment Performing Organization Information ?Site ID: QPT ?Name: [facility] ?Address: [address] [place] [address], [address] [place] [phone] ?Director: Desean Thomas MD Authorizing ProviderResult TypeResult StatusJudy MALDONADO BLOOD ORDERABLES Final ResultPerforming OrganizationAddressCity/State/ZIP CodePhone Number [facility] * Lipid panel (02/10/2025 10:25 AM EST)ComponentValueRef RangeTest Method Analysis TimePerformed AtPathologist SignatureCHOLESTEROL, MKYOT168<200 mg/dL QUESTHDL GSXRWDJWWLG07> OR = 40 mg/pPZSNKGHTSTUJUCTNFYO60<150 mg/dLQUESTLDL SAGQNZSCPPT19as/dL (calc)QUESTComment: Reference range: <100 Desirable range <100 mg/dL for primary prevention; <70 mg/dL for patients with CHD or diabetic patients with > or = 2 CHD risk factors. LDL-C is now calculated using the Ryan calculation, which is a validated novel method providing better accuracy than the Friedewald equation in the estimation of LDL-C. Carlton JONES et al. YULY. 2013;310(19): 8524-7424 (http://education.[employer].Eventials/faq/VPL556) CHOL/HDLC RATIO3.0<5.0 (calc)QUESTNON HDL PZWGVAGSFCT682<130 mg/dL (calc)QUEST Comment: For patients with diabetes plus 1 major ASCVD risk factor, treating to a non-HDL-C goal of <100 mg/dL (LDL-C of <70 mg/dL) is considered a therapeutic option. Specimen (Source)Anatomical Location / LateralityCollection Method / Volume Collection TimeReceived TimeBloodVenous blood specimen / Wrluvan2702/10/2025 10:25 AM EST02/10/2025 10:26 AM EST Narrative [facility] - 02/11/2025 7:16 AM EST FASTING:YES FASTING: YES Resulting Agency Comment Performing Organization Information ?Site ID: QPT ?Name: [facility] ?Address: [address] [place] [address], [address] [place] [phone] ?Director: Desean Thomas MD Authorizing ProviderResult TypeResult StatusJudy MALDONADO BLOOD ORDERABLES Final ResultPerforming OrganizationAddressCity/State/ZIP CodePhone Number [facility] * (ABNORMAL) Comprehensive metabolic panel (02/10/2025 10:25 AM EST)Component ValueRef RangeTest MethodAnalysis TimePerformed AtPathologist SignatureGlucose 8765 - 99 mg/dLQUESTComment: ? Fasting reference interval LHW912 - 25 mg/dLQUESTCreatinine0.960.70 - 1.35 mg/gMFDHWVKVCR44> OR = 60 mL/min/1.06k4GLEVSJZA/CREATININE RATIOSEE NOTE:6 - (calc)QUESTComment: ?? Not Reported: BUN and Creatinine are within ?? reference range. ? Nhmxdf514198 - 146 mmol/LQUESTPotassium, Bld4.03.5 - 5.3 mmol/ZBKVSAAjlvokhy884 98 - 110 mmol/LQUESTCarbon Nknwizp2882 - 32 mmol/LQUESTCalcium9.78.6 - 10.3 mg/dLQUESTPROTEIN, TOTAL6.56.1 - 8.1 g/dLQUESTALBUMIN4.63.6 - 5.1 g/dLQUEST GLOBULIN1.91.9 - 3.7 g/dL (calc)QUESTALBUMIN/GLOBULIN RATIO2.41.0 - 2.5 (calc) QUESTBILIRUBIN, TOTAL2.2(H)0.2 - 1.2 mg/dLQUESTALKALINE KDHMCEZMEBM6720 - 144 U/XWZIIGAES5193 - 35 U/WMKDOZYTB618 - 46 U/LQUESTSpecimen (Source)Anatomical Location / LateralityCollection Method / VolumeCollection TimeReceived TimeBlood Venous blood specimen / Modyfot1302/10/2025 10:25 AM EST02/10/2025 10:26 AM EST Narrative [facility] - 02/11/2025 7:16 AM EST FASTING:YES FASTING: YES Resulting Agency Comment Performing Organization Information ?Site ID: QPT ?Name: [facility] ?Address: [address] [place] [address], [address] [place] [phone] ?Director: Desean Thomas MD Authorizing ProviderResult TypeResult StatusJudy Gates MDLAB BLOOD ORDERABLES Final ResultPerforming OrganizationAddressCity/State/ZIP CodePhone Number [facility] * Colonoscopy (01/26/2021 12:00 PM EDT)Anatomical RegionLateralityModality EndoscopySpecimen (Source)Anatomical Location / LateralityCollection Method / VolumeCollection TimeReceived Time01/26/2021 12:00 PM EDT Narrative 01/26/2021 12:00 PM EDT PERFORMED AT [facility] LOCATION:[id number] Tubular adenoma, diverticulosis Procedure Note CONVERSION, GENERIC - 08/08/2022 PERFORMED AT [facility] LOCATION:[id number] Tubular adenoma, diverticulosis Authorizing ProviderResult TypeResult StatusJudy Gates MDENDOSCOPY PROCEDURE ORDERABLESFinal Result from Last 3 Months or Most Recently Relevant to Health Maintenance Insurance [address] [place] [address] Care Teams Team MemberRelationshipSpecialtyStart DateEnd Date Judy Gates MD [address] [facility] [address] [place], [place] [id number] PCP - GeneralFamily Medicine08/24/22
--- OUTSIDE RECORDS SUMMARY | 2025-02-17 09:57 | XMS_ITS | Encounter Summary ---
Author Organization [facility] Address [address] [place] [address] Care Team Providers Care Cable Mechanic Name Role Phone Judy Gates MD Primary Care Provider [phone] Encounter Details DateTypeDepartmentCare Team (Latest Contact Info)Maqjjriihnw66/12/2025Telephone [facility] [place] [facility] [address] [place] [address] Judy Gates MD [address] [place] [address] Social History Tobacco UseTypesPacks/DayYears UsedDateSmoking Tobacco: NeverSmokeless Tobacco: NeverAlcohol UseStandard Drinks/WeekCommentsYes0 (1 standard drink = 0.6 oz pure alcohol)2-4 times/month. Caffeine 1-2 cups/dayPHQ-2AnswerDate RecordedPatient Health Questionnaire-2 [id number] and Gender InformationValueDate RecordedSex Assigned at BirthNot on fileLegal IioHtve3606/06/2022 7:35 PM EDT Gender MnfsxwheLhwa97/15/2023 7:35 PM EDTSexual OrientationNot on filedocumented as of this encounter Miscellaneous Notes * Telephone Encounter - Esther Naranjo MA - 02/03/2025 9:32 AM EST Orders placed and pt notified * Telephone Encounter - Debbie Woods - 02/03/2025 9:21 AM EST Patient called wondering if we can order his lab work before his upcoming appointment so he can getit done and get the results during the appointment documented in this encounter Plan of Treatment DateTypeDepartmentCare Team (Latest Contact Info)Vauwjztilwl03/15/2025 2:00 PM ESTOffice Visit [facility] [place] [facility] [address] [place] [address] Judy Gates MD [address] [place] [address] 04/29/2025 9:35 AM ESTOffice Visit [facility] [place] [facility] [address] [place] [phone] Yvette Alfaro MD [address] [place] [address] documented as of this encounter Procedures Procedure NamePriorityDate/TimeAssociated DiagnosisCommentsCBC (INCLUDES DIFF/PLT)Uesiiut7702/10/2025 10:25 AM EST Nocturia Mixed hyperlipidemia Family history of diabetes mellitus Benign essential hypertension Abnormal glucose tolerance test Encounter for well adult exam without abnormal findings PSA, BAOLRTtndixj74/19/2025 10:25 AM EST Nocturia Encounter for well adult exam without abnormal findings LIPID PMQYPCbmoeux07/19/2025 10:25 AM EST Mixed hyperlipidemia Encounter for well adult exam without abnormal findings COMPREHENSIVE METABOLIC SDPCPXyiovkd03/19/2025 10:25 AM EST Nocturia Mixed hyperlipidemia Family history of diabetes mellitus Benign essential hypertension Abnormal glucose tolerance test Encounter for well adult exam without abnormal findings documented in this encounter Results * PSA (02/10/2025 10:25 AM EST)ComponentValueRef RangeTest MethodAnalysis Time Performed AtPathologist SignaturePSA, TOTAL0.75< OR = 4.00 ng/mLQUESTComment: The total PSA value from this assay system is standardized against the WHO standard. The test result will be approximately 20% lower when compared to the equimolar-standardized total PSA (Anil [place]). Comparison of serial PSA results should be [...] Volume Collection TimeReceived TimeBloodVenous blood specimen / Xcclzoa6502/10/2025 10:25 AM EST02/10/2025 10:26 AM EST Narrative [facility] - 02/11/2025 7:16 AM EST FASTING:YES FASTING: YES Resulting Agency Comment Performing Organization Information ?Site ID: QPT ?Name: [facility] ?Address: [address] [place] [address], [address] [place] [phone] ?Director: Desean Thomas MD Authorizing ProviderResult TypeResult StatusJudy Gates MDLAB BLOOD ORDERABLES Final ResultPerforming OrganizationAddressCity/State/ZIP CodePhone Number [facility] * Lipid panel (02/10/2025 10:25 AM EST)ComponentValueRef RangeTest Method Analysis TimePerformed AtPathologist SignatureCHOLESTEROL, ENYSN071<200 mg/dL QUESTHDL LJOHKQLOUMY10> OR = 40 mg/oAHHDQIEWFXDOKSIVZJZ00<150 mg/dLQUESTLDL XSPXIDHCKSR11md/dL (calc)QUESTComment: Reference range: <100 Desirable range <100 mg/dL for primary prevention; <70 mg/dL for patients with CHD or diabetic patients with > or = 2 CHD risk factors. LDL-C is now calculated using the Carlton-Thadedus calculation, which is a validated novel method providing better accuracy than the Friedewald equation in the estimation of LDL-C. Carlton SS et al. YULY. 2013;310(19): 2926-6955 (http://education.Socialmoth.FusionOne/faq/BIF578) CHOL/HDLC RATIO3.0<5.0 (calc)QUESTNON HDL PGEXCRBAFIR584<130 mg/dL (calc)QUEST Comment: For patients with diabetes plus 1 major ASCVD risk factor, treating to a non-HDL-C goal of <100 mg/dL (LDL-C of <70 mg/dL) is considered a therapeutic option. Specimen (Source)Anatomical Location / LateralityCollection Method / Volume Collection TimeReceived TimeBloodVenous blood specimen / Adowckn8202/10/2025 10:25 AM EST02/10/2025 10:26 AM EST Narrative [facility] - 02/11/2025 7:16 AM EST FASTING:YES FASTING: YES Resulting Agency Comment Performing Organization Information ?Site ID: QPT ?Name: [facility] ?Address: [address] [place] [address], [address] [place] [phone] ?Director: Desean Thomas MD Authorizing ProviderResult TypeResult StatusJudy Gates MDLAB BLOOD ORDERABLES Final ResultPerforming OrganizationAddressCity/State/ZIP CodePhone Number [facility] * (ABNORMAL) Comprehensive metabolic panel (02/10/2025 10:25 AM EST)Component ValueRef RangeTest MethodAnalysis TimePerformed AtPathologist SignatureGlucose 8765 - 99 mg/dLQUESTComment: ? Fasting reference interval MKA009 - 25 mg/dLQUESTCreatinine0.960.70 - 1.35 mg/uVDUBGCHLIK50> OR = 60 mL/min/1.73s1LVNHEGFB/CREATININE RATIOSEE NOTE: - (calc)QUESTComment: ?? Not Reported: BUN and Creatinine are within ?? reference range. ? Yxltfq141148 - 146 mmol/LQUESTPotassium, Bld4.03.5 - 5.3 mmol/JZNSYRTyvbspcx328 98 - 110 mmol/LQUESTCarbon Cpavqay7267 - 32 mmol/LQUESTCalcium9.78.6 - 10.3 mg/dLQUESTPROTEIN, TOTAL6.56.1 - 8.1 g/dLQUESTALBUMIN4.63.6 - 5.1 g/dLQUEST GLOBULIN1.91.9 - 3.7 g/dL (calc)QUESTALBUMIN/GLOBULIN RATIO2.41.0 - 2.5 (calc) QUESTBILIRUBIN, TOTAL2.2(H)0.2 - 1.2 mg/dLQUESTALKALINE SMURYVHZOUR7084 - 144 U/QLCQZZQMH9188 - 35 U/LBKKODOFQ683 - 46 U/LQUESTSpecimen (Source)Anatomical Location / LateralityCollection Method / VolumeCollection TimeReceived TimeBlood Venous blood specimen / Jpynavg0902/10/2025 10:25 AM EST02/10/2025 10:26 AM EST Narrative [facility] - 02/11/2025 7:16 AM EST FASTING:YES FASTING: YES Resulting Agency Comment Performing Organization Information ?Site ID: QPT ?Name: [facility] ?Address: [address] [place] [address], [address] [place] [phone] ?Director: Desean Thomas MD Authorizing ProviderResult TypeResult StatusJudy Gates MDLAB BLOOD ORDERABLES Final ResultPerforming OrganizationAddressCity/State/ZIP CodePhone Number [facility] * CBC and differential (02/10/2025 10:25 AM EST)ComponentValueRef RangeTest MethodAnalysis TimePerformed AtPathologist SignatureWHITE BLOOD CELL COUNT7.6 3.8 - 10.8 Thousand/uLQUESTRED BLOOD CELL COUNT5.204.20 - 5.80 Million/uLQUEST WQESUGUEMJ93.613.2 - 17.1 g/fBRPPWLFNJKRSFXBW48.438.5 - 50.0 %DAOCJRDB96.280.0 - 100.0 gORPGPJRHF12.927.0 - 33.0 jdMQULYLJEV18.032.0 - 36.0 g/dLQUESTComment: For adults, a slight decrease in the calculated MCHC value (in the range of 30 to 32 g/dL) is most likely not clinically significant; however, it should be interpreted with caution in correlation with other red cell parameters and the patient's clinical condition. RDW11.911.0 - 15.0 %QUESTPLATELET XUODW152614 - 400 Thousand/uLQUESTMPV9.97.5 - 12.5 fLQUESTABSOLUTE NEUTROPHILS4,5521,500 - 7,800 cells/uLQUESTABSOLUTE LYMPHOCYTES2,171777 - 3,900 cells/uLQUESTABSOLUTE HECEDTJIR047248 - 950 cells/uL QUESTABSOLUTE JGMRKAFQRTN73045 - 500 cells/uLQUESTABSOLUTE XXHKDXVSS061 - 200 cells/nZDVOZEEHCDJJGHTAL54.9%WXLDFTQFYOETUVHV25.6%QUESTMONOCYTES8.5%QUEST EOSINOPHILS3.7%QUESTBASOPHILS1.3%QUESTSpecimen (Source)Anatomical Location / LateralityCollection Method / VolumeCollection TimeReceived TimeBloodVenous blood specimen / Vsplkld4102/10/2025 10:25 AM EST02/10/2025 10:26 AM EST Narrative [facility] - 02/11/2025 7:16 AM EST FASTING:YES FASTING: YES Resulting Agency Comment Performing Organization Information ?Site ID: QPT ?Name: [facility] ?Address: [address] [place] [address], [address] [place] [phone] ?Director: Desean Thomas MD Authorizing ProviderResult TypeResult StatusJudy Gates MDLAB BLOOD ORDERABLES Final ResultPerforming OrganizationAddressCity/State/ZIP CodePhone Number [facility]ST documented in this encounter Visit Diagnoses Diagnosis Nocturia Mixed hyperlipidemia Family history of diabetes mellitus Benign essential hypertension Essential hypertension, benign Abnormal glucose tolerance test Impaired glucose tolerance test Encounter for well adult exam without abnormal findings documented in this encounter Care Teams Team MemberRelationshipSpecialtyStart DateEnd Date Judy Gates MD [address] [place] [address] PCP - GeneralFamily Medicine08/24/22documented as of this encounter
--- OUTSIDE RECORDS SUMMARY | 2025-02-17 09:57 | XMS_ITS | Clinical Summary ---
Author Organization [facility] Address [address] [place] [address] Phone Care Team Providers Care Supervising Film Or Videotape Editor Name Role Phone Judy Gates MD Primary Care Provider [phone] Social History Tobacco UseTypesPacks/DayYears UsedDateSmoking Tobacco: Never AssessedSex and Gender InformationValueDate RecordedSex Assigned at BirthNot on fileLegal Sex Male08/30/2024 10:58 AM EDTGender IdentityNot on fileSexual OrientationNot on file Plan of Treatment Health MaintenanceDue DateLast DoneCommentsCT Lvdojwjtgixj94/04/1963FIT-DNA (Cologuard)1962FIT1962HIV Yygkdsnrv97/04/1963Lipid Panel1962 Crlrfscogrioy03/04/1963MMR Vaccines (1 of 1 - Standard series)05/27/1963 Hepatitis C Veoangslf70/04/1981Hepatitis A Vaccines (1 of 2 - Risk 2-dose series)1981DTaP/Tdap/Td Vaccines (1 - Tdap)1984PSA Prostate Cancer Ykavsocfl05/04/2013Pneumococcal Vaccine (1 of 1 - PCV)2012RSV High Risk: (Elderly (60+) or Population) (1 - Risk 50-74 years 1-dose series) 2012Zoster Vaccines (1 of 2)2012Hepatitis B Vaccines (1 of 3 - Risk 3-dose series)2022Influenza Vaccine (#1)509/, 02/27/2019, 02/09/2018, Additional history existsCOVID-19 Vaccine ( season) 5Yearly Adult Boujstxf54/511/02/2024, 3Colonoscopy /06/2020, 01/26/2021, 01/26/2021olorectal Cancer Screening 01/26/2031HIB VaccinesAged OutNo longer eligible based on patient's age to complete this topicHPV VaccinesAged OutNo longer eligible based on patient's age to complete this topicIPV VaccinesAged OutNo longer eligible based on patient's age to complete this topicMeningococcal VaccineAged OutNo longer eligible based on patient's age to complete this topicRotavirus VaccinesAged OutNo longer eligible based on patient's age to complete this topic Insurance Care Teams Team MemberRelationshipSpecialtyStart DateEnd Date Judy Gates MD [address] [facility] [address] [place] [address] [facility]11/09/24
--- OUTSIDE RECORDS SUMMARY | 2025-02-17 09:57 | XMS_ITS | Encounter Summary ---
Author Organization [facility] Address [address] [facility] [place] [address] Care Team Providers Care Lead Sewage Plant Operator Name Role Phone Judy Gates MD Primary Care Provider [phone] Encounter Details DateTypeDepartmentCare Team (Latest Contact Info)Yukxcrushwl94/19/2025Orders Only [facility] [place] [facility] [address] [place] [address] Jordyn Augustin PA [address] [place], [place] [address] Erectile dysfunction, unspecified erectile dysfunction type (Primary Dx) Social History Tobacco UseTypesPacks/DayYears UsedDateSmoking Tobacco: NeverSmokeless Tobacco: NeverAlcohol UseStandard Drinks/WeekCommentsYes0 (1 standard drink = 0.6 oz pure alcohol)2-4 times/month. Caffeine 1-2 cups/dayPHQ-2AnswerDate RecordedPatient Health Questionnaire-2 Eialz460Sex and Gender InformationValueDate RecordedSex Assigned at BirthNot on fileLegal FssEgwh9606/06/2022 7:35 PM EDT Gender DyykctkhTefc45/15/2023 7:35 PM EDTSexual OrientationNot on filedocumented as of this encounter Progress Notes * DAKSHA Wang - 02/10/2025 10:21 AM EST Lab order per pt request. documented in this encounter Plan of Treatment DateTypeDepartmentCare Team (Latest Contact Info)Ypzjskfsjcr53/ 2:00 PM ESTOffice Visit [facility] [place] [facility] [address] [place] [address] Judy Gates MD [address] [place] [address] 04/29/2025 9:35 AM ESTOffice Visit [facility] [place] [facility] [address] [place] [phone] Yvette Alfaro MD [address] [place] [address] documented as of this encounter Procedures Procedure NamePriorityDate/TimeAssociated DiagnosisCommentsTESTOSTERONE FREE AND BGPSNJmwwbpv75/19/2025 10:25 AM EST Erectile dysfunction, unspecified erectile dysfunction type documented in this encounter Results * Testosterone, free, total (02/10/2025 10:25 AM EST)ComponentValueRef RangeTest MethodAnalysis TimePerformed AtPathologist SignatureTESTOSTERONE, TOTAL, MS588 250 - 1,100 ng/dLQUESTComment: Men with clinically significant hypogonadal symptoms and testosterone values repeatedly in the range of the 200-300 ng/dL or less, may benefit from testosterone treatment after adequate risk and benefits counseling. ? For additional information, please refer to http://education.Biomoda.Routehappy/faq/ WsiyzLtoytktcdapuMXZTFRUBP634 (This link is being provided for informational/ educational purposes only.) This test was developed and its analytical performance characteristics have been determined by [employer] [place], [place]. It has not been cleared or approved by the U.S. Food and Drug Administration. This assay has been validated pursuant to the CLIA regulations and is used for clinical purposes. ? TESTOSTERONE, FREE60.035.0 - 155.0 pg/mLQUESTComment: This test was developed and its analytical performance characteristics have been determined by [employer] [place], [place]. It has not been cleared or approved by the U.S. Food and Drug Administration. This assay has been validated pursuant to the CLIA regulations and is used for clinical purposes. Specimen (Source)Anatomical Location / LateralityCollection Method / Volume Collection TimeReceived TimeBloodVenous blood specimen / Rohyegm9202/10/2025 10:25 AM EST02/10/2025 10:26 AM EST Narrative [facility] - 02/16/2025 8:02 PM EST FASTING:YES FASTING: YES Resulting Agency Comment Performing Organization Information ?Site ID: AMD ?Name: [facility] ?Address: [address] [place] [address] [place], [place] ?Director: Yonis France M.D.,PhD Authorizing ProviderResult TypeResult StatusJordyn Vega [facility] BLOOD ORDERABLESFinal ResultPerforming OrganizationAddressCity/State/ZIP CodePhone Number [facility] documented in this encounter Visit Diagnoses Diagnosis Erectile dysfunction, unspecified erectile dysfunction type- Primary documented in this encounter Care Teams Team MemberRelationshipSpecialtyStart DateEnd Date Judy Gates MD [address] [facility] [address] [place] [address] PCP - GeneralFamily Medicine08/24/22documented as of this encounter
--- OUTSIDE RECORDS SUMMARY | 2025-02-17 09:57 | XMS_ITS | Encounter Summary ---
Author Organization [facility] Address [address] [facility] [place] [address] Care Team Providers Care Air Hammer Stripper Name Role Phone Judy Gates MD Primary Care Provider [phone] Encounter Details DateTypeDepartmentCare Team (Latest Contact Info)Nmgrxtptfxv04/24/2025Results Follow-Up [facility] [place] [facility] [address] [place] [address] Judy Gates MD [address] [place] [address] CBC and differential, Comprehensive metabolic panel, Lipid panel, PSA Social History Tobacco UseTypesPacks/DayYears UsedDateSmoking Tobacco: NeverSmokeless Tobacco: NeverAlcohol UseStandard Drinks/WeekCommentsYes0 (1 standard drink = 0.6 oz pure alcohol)2-4 times/month. Caffeine 1-2 cups/dayPHQ-2AnswerDate RecordedPatient Health Questionnaire-2 Ojhul314Sex and Gender InformationValueDate RecordedSex Assigned at BirthNot on fileLegal McwMrmp6606/06/2022 7:35 PM EDT Gender IreivagcWpjw60/15/2023 7:35 PM EDTSexual OrientationNot on filedocumented as of this encounter Miscellaneous Notes * Telephone Encounter - CARRILLO STARKEY - 02/16/2025 9:08 AM EST Patient notified. * Telephone Encounter - CARRILLO STARKEY - 02/16/2025 9:08 AM EST ----- Message from Dr. Judy Gates sent at 02/15/2025 4:49 PM EST ----- Labs are normal except Tbili is slighty elevated but not new. ----- Message ----- From: [facility] Results In Sent: 02/11/2025 7:17 AM EST To: Judy Gates MD documented in this encounter Plan of Treatment DateTypeDepartmentCare Team (Latest Contact Info)Lfekkeccxcb67/15/2025 2:00 PM ESTOffice Visit [facility] [place] [facility] [address] [place] [address] Judy Gates MD [address] [place] [address] 04/29/2025 9:35 AM ESTOffice Visit [facility] [place] [facility] [address] [place] [phone] Yvette Alfaro MD [address] [place] [address] documented as of this encounter Visit Diagnoses Not on filedocumented in this encounter Care Teams Team MemberRelationshipSpecialtyStart DateEnd Date Judy Gates MD [address] [place] [address] PCP - GeneralFamily Medicine08/24/22documented as of this encounter
--- OUTSIDE RECORDS SUMMARY | 2025-02-17 09:57 | XMS_ITS | Clinical Summary ---
Author Organization [facility] Address [id number] [place] [address] Care Team Providers Care [employer] Name Role Phone Christi Magana Primary Care Provider Unavaila ble Allergies No known active allergies Medications MedicationSigDispense QuantityRefillsLast FilledStart DateEnd DateStatus sertraline (ZOLOFT) 100 mg tablet Take 100 mg by mouth daily. Active esomeprazole (NexIUM) 20 mg capsule Take 20 mg by mouth every morning before breakfast.Active aspirin 81 mg Take 81 mg by mouth daily.Active atorvastatin (LIPITOR) 20 mg tablet Take 20 mg by mouth daily.Active tyegzbbo-dlsu-UF-calcium &mins (THERAGRAN-M) 9 mg iron-400 mcg tablet Take 1 tablet by mouth daily.Active Active Problems ProblemNoted DateDiagnosed DateAngina /08/2021Gastroesophageal reflux ygdaiht44/08/6158Ehdrmouzjlfm62/08/2021 Family History Medical HistoryRelationNameCommentsDiabetesFatherEarly deathFatherHeart disease FatherDiverticulitisMotherRelationNameStatusCommentsDaughterAliveFatherDeceased MotherAliveSister 1AliveSister 2AliveSon 1AliveSon 2Alive Social History Tobacco UseTypesPacks/DayYears UsedDateSmoking Tobacco: NeverSmokeless Tobacco: Never Tobacco Cessation:Counseling Given: No Alcohol UseStandard Drinks/WeekCommentsYes0 (1 standard drink = 0.6 oz pure alcohol)ChildcareAnswerDate UxkbpcvtOqbxntioxBdyzcpb39/12/2019EmploymentAnswer Date SvwahdrsGuabapnldaDmyqjpb68/12/2019Purpose - LifeAnswerDate RecordedPurpose and direction in brsvYmloymn67/11/2021ex and Gender InformationValueDate RecordedSex Assigned at BirthNot on fileLegal ZepVffi5010/28/2014 11:36 AM EDT Gender IdentityNot on fileSexual OrientationNot on file Last Filed Vital Signs Vital SignReadingTime TakenCommentsBlood Llovttbz073/9601/26/2021 8:33 AM EDT Rlfif478101/26/2021 8:33 AM GUPIpqtswqvkyq03.4 ??C (97.6 ??F)01/26/2021 6:43 AM EDTRespiratory Hvbv925701/26/2021 8:13 AM EDTOxygen Uoxwtxcagh96%01/26/2021 8:33 AM EDTInhaled Oxygen Concentration--Phfchs98.8 kg (220 lb)01/26/2021 6:43 AM EDT Gogvpv207.3 cm (5' 9 )01/26/2021 6:43 AM EDTBody Mass Index32.4901/26/2021 6:43 AM EDT Plan of Treatment Health MaintenanceDue DateLast DoneCommentsStatin Use: Lhpmshcvjcalrr60/04/1963 Depression Eoylutmfc59/04/1975Tobacco Obeqbkijk39/04/1975Adult BMI Screening 1980DTaP,Tdap and Td Vaccines (1 - Tdap)1981Zoster (Shingles) Vaccine (1 of 2)2012COVID-19 Vaccine (3 - season)2024 06/28/2020, 06/07/2020Influenza Syhdeow72/01/56287912/11/2019, 02/27/2019, 02/09/2018, Additional history jlotmhTnewhxdegqq39/04/95328903/28/2020, 01/26/2021, 07/05/2014RSV ( or age 60+ yrs) (1 - 1-dose 75+ series) 2037 Medical Devices Not on file Procedures Procedure NamePriorityDate/TimeAssociated UuremwlbwYmzjjcpbLNGSVKIPBWF54/04/2021 7:46 AM EDT from Last 3 Months or Most Recently Relevant to Health Maintenance Results * Colonoscopy (01/26/2021 7:46 AM EDT)Specimen (Source)Anatomical Location / LateralityCollection Method / VolumeCollection TimeReceived Time01/26/2021 7:46 AM EDT Narrative PM CARDIOVASCULAR - 01/26/2021 8:10 AM EDT [facility] Patient Name: Steve Harley ?? Procedure Date No Time: 01/26/2021 ?? CSN : [id number] Date of : 1960 Admit Type: Outpatient Age: 60 Room: [place] [address] Gender: Male Note Status: Finalized Attending MD: Enrrique Dixon DO Procedure: ? Colonoscopy Indications: ? Screening for colorectal malignant neoplasm, ? Surveillance: Personal history of adenomatous polyps on last colonoscopy > 5 years ago Providers: ? Enrrique Dixon DO Referring MD: ?Enrrique Dixon DO Medicines: ? Propofol per Anesthesia Complications: ? No immediate complications. Procedure: ? After I obtained informed consent, the scope was ? passed under direct vision. Throughout the procedure, ? the patient's blood pressure, pulse, and oxygen ? saturations were monitored continuously. The OLYMPUS ? [id number] #[id number] ADULT COLONOSCOPE was introduced ? through the anus and advanced to the cecum, identified ? by appendiceal orifice and ileocecal valve. The ? colonoscopy was performed without difficulty. The ? patient tolerated the procedure well. The quality of ? the bowel preparation was good. Findings: ? The perianal and digital rectal examinations were normal. ? Multiple small and large-mouthed diverticula were found in the sigmoid ? colon and descending colon. ? A 5 mm polyp was found in the hepatic flexure. The polyp was sessile. ? The polyp was removed with a hot snare. Resection and retrieval were ? complete. ? The exam was otherwise without abnormality on direct and retroflexion ? views. Estimated Blood Loss: ??Estimated blood loss: none. Impression: ?- Diverticulosis in the sigmoid colon and in the ? descending colon. ? - One 5 mm polyp at the hepatic flexure, removed with ? a hot snare. Resected and retrieved. ? - The examination was otherwise normal on direct and ? retroflexion views. Recommendation: ?- Discharge patient to home. ? - Patient has a contact number available for ? emergencies. The signs and symptoms of potential ? delayed complications were discussed with the patient. ? Return to normal activities tomorrow. Written ? discharge instructions were provided to the patient. ? - High fiber diet for the rest of the patient's life. ? - Repeat colonoscopy in 5 years for surveillance based ? on pathology results. ? - Return to my office PRN. Procedure Code(s): ? --- Professional --- ? 86006, Colonoscopy, flexible; with removal of ? tumor(s), polyp(s), or other lesion(s) by snare ? technique Diagnosis Code(s): ? --- Professional --- ? Z12.11, Encounter for screening for malignant neoplasm of colon ? Z86.010, Personal history of colonic polyps ? K63.5, Polyp of colon ? K57.30, Diverticulosis of large intestine without perforation or abscess ? without bleeding CPT copyright 2020 [employer]. All rights reserved. The codes documented in this report are preliminary and upon veterinary poultry inspector review may be revised to meet current compliance requirements. DO Enrrique Gibbons DO 01/26/2021 8:10:23 AM Number of Addenda: 0 Note Initiated On: 01/26/2021 7:46 AM Procedure Note Enrrique Dixon DO - 01/26/2021 [facility] Patient Name: Steve Harley Procedure Date No Time: 01/26/2021 CSN : [id number] Date of : 1960 Admit Type: Outpatient Age: 60 Room: [place] [address] Gender: Male Note Status: Finalized Attending MD: [...] pulse, and oxygen saturations were monitored continuously. TheBizeeBee [id number] #[id number] ADULT COLONOSCOPE was introduced through the anus [...] office PRN. Procedure Code(s): --- Professional --- 17129, Colonoscopy, flexible; with removal of tumor(s), polyp(s), or other lesion(s) by snare technique Diagnosis Code(s): --- Professional --- Z12.11, Encounter for screening for malignant neoplasm of colon Z86.010, Personal history of colonic polyps K63.5, Polyp of colon K57.30, Diverticulosis of large intestine without perforation orabscess without bleeding CPT copyright 2020 [employer]. All rights reserved. The codes documented in this report are preliminary and upon veterinary poultry inspector reviewmay be revised to meet current compliance requirements. DO Enrrique Gibbons DO 01/26/2021 8:10:23 AM Number of Addenda: 0 Note Initiated On: 01/26/2021 7:46 AM Authorizing ProviderResult TypeResult StatusMickathy MAYO PROCEDURE ORDERABLESFinal ResultPerforming OrganizationAddressCity/State/ZIP CodePhone Number PM CARDIOVASCULAR from Last 3 Months or Most Recently Relevant to Health Maintenance Insurance [address] [place] [id number] Care Teams Team MemberRelationshipSpecialtyStart DateEnd Date Christi Magana DO [facility]
--- NOTE | 2025-02-17 10:10 | CT_ITS ---
The [address] [address] Patient Name: MEL KOCH MRN: [id number] date: 1960 Sex: M Assigned Patient Location: LAB Current Patient Location: LAB Accession/Order Number: [id number] Exam Date: 02/17/2025 10:38 Report Date: 02/17/2025 11:30 At the request of: CJ LARRY Procedure: CT chest w con CT CHEST WITH INTRAVENOUS CONTRAST: CLINICAL HISTORY: Follow-up left lung nodule on chest x-ray COMPARISON: Chest x-ray 11/16/2024 TECHNIQUE: Spiral images were obtained through the chest following intravenous administration of 100 mL of Omnipaque 300. Images were reviewed using both narrow and wide window settings. This CT exam was performed using one or more following dose reduction techniques: Automated exposure control, adjustment of the mA and/or kV according to patient size, or use of iterative reconstruction technique. FINDINGS: The heart is not enlarged. There is no pericardial effusion. No aortic aneurysm or dissection is seen. There are small nonpathologic mediastinal and hilar lymph nodes. There are also small mediastinal granulomas. Minor gynecomastia is seen. The bony structures are intact. Subtle upper thoracic levoscoliotic curvature and mild endplate spurring are visualized. Mild atelectasis and possible scarring are noted. There is no consolidation, pleural effusion or pneumothorax. A lingular nodule is visualized measuring approximately 17 mm in size. There is central calcification and this may be a granuloma. No other nodularity is seen. Limited cuts through the upper abdomen show suspected fatty liver. There is prior cholecystectomy. CT/CT chest w con IMPRESSION: SUSPECTED LINGULAR GRANULOMA AT THE SITE OF CONCERN ON RECENT CHEST X-RAY. NO OTHER ACUTE FINDINGS. Impression dictated by: Jordyn Steele M.D. 02/17/2025 11:30 AM Dictation Location: [place] [address] Electronically authenticated by: [id number] Y Date: 02/17/2025 11:30
[2025-02-17 10:24] LABS: Estimated GFR (African America >60 (>=60 mL/min/1.73m^2); Estimated GFR (Non-African Ame >60 (>=60 mL/min/1.73m^2)
== END 2025-02-17 09:55 | disposition home or self-care (01) ==
LOC: LAB 09:54
PROVIDERS: Pathology Anatomic Pathology & Clinical Pathology; PCP Family Medicine; Visit Provider Family Medicine
DX: Z01.818 Encounter for other preprocedural examination (principal); R91.1 Solitary pulmonary nodule
CPT/HCPCS: 36415; 71260; 82565; Q9967